=== PATIENT | male | born 1970 ===

== ENCOUNTER 2016-10-29 12:46 | Day surgery (SDC) | payer SELFPAY ==
[~2016-10-29] VITALS: Ht 160 cm; Wt 69.9 kg
[2016-10-29] MEDS ORDERED: INDOMETHACIN 25 MG CAPSULE PO SCH (14:00)
[2016-10-30] MEDS ORDERED: ASPIRIN 81 MG TAB.CHEW PO SCH (08:00)
[2016-10-30] MEDS ORDERED: LISINOPRIL 10 MG TABLET PO SCH (09:00)
[2016-10-30] MEDS ORDERED: METOPROLOL SUCC 24HR ER 50 MG TAB.ER.24H. PO SCH (09:00)
== END 2016-11-16 10:23 | disposition home or self-care (01) ==
LOC: SDC 12:46
PROVIDERS: ATTEND Internal Medicine
DX: Z53.21 Procedure and treatment not carried out due to patient leaving prior to being seen by health care provider (principal)
CPT/HCPCS: 36415; 85049; 85610